=== PATIENT | male | born 1980 | race Caucasian/White ===

== ENCOUNTER 2022-07-24 07:46 | Outpatient (CLI) | payer OTHER, SELFPAY ==
[2022-07-24 15:26] LABS: Chloride* 107 mmol/L (96-114)
[2022-07-24 15:27] LABS: Albumin* 4.5 g/dL (3.3-5.0); Potassium* 4.4 mmol/L (3.6-5.1); Sodium* 141 mmol/L (135-149)
[2022-07-24 15:29] LABS: Cholesterol* 178 mg/dL (90-199)
[2022-07-24 15:30] LABS: Alanine Aminotransferase* 26 U/L (4-50); Alkaline Phosphatase* 95 U/L (40-150); Aspartate Amino Transferase* 27 U/L (12-35); Bilirubin Total* 0.7 mg/dL (0.1-1.5); Blood Urea Nitrogen* 15 mg/dL (5-24); Calcium* 9.5 mg/dL (8.4-10.6); Carbon Dioxide* 27 mmol/L (20-32); Creatinine* 0.8 mg/dL (0.5-1.5); Estimated Glomerular Filt Rate 113 ml/min; Glucose* 94 mg/dL (60-115); Total Protein* 7.3 g/dL (6.0-8.3); Triglycerides* 68 mg/dL (40-149)
[2022-07-24 15:31] LABS: HDL Cholesterol* 68 mg/dL (>=40); LDL Cholesterol Calculated 96 mg/dL (<100)
== END 2022-07-24 07:47 | disposition home or self-care (01) ==
PROVIDERS: PCP Family Medicine; Visit Provider Family Medicine
DX: Z00.00 Encounter for general adult medical examination without abnormal findings (principal); E78.5 Hyperlipidemia, unspecified; E66.9 Obesity, unspecified; R03.0 Elevated blood-pressure reading, without diagnosis of hypertension
CPT/HCPCS: 80053; 80061; 82043; 82570

== ENCOUNTER 2022-08-12 13:47 | Outpatient (CLI) | payer OTHER, SELFPAY ==
[2022-08-12 15:12] VITALS: BP 130/74; PULSE 107; RESP 16
--- NOTE | 2022-08-12 16:20 | W.PM.STED ---
Stress Test Note Date Date of test: 08/12/22 Providers Primary care provider: Not a Local Provider Stress test physician: Jean Kolb Stress Test Note Stress test ordered: Stress Echo Indication for test: Chest pain Results discussion: Patient is a very nice gentleman who presents for the above test after discussion the risks benefits and side effects in review of the cardiac stress test medical history he would like to proceed pretest EKG shows normal sinus rhythm, no acute ST wave changes, ventricular rate 84 and blood pressure 124/82. Patient exercised for a total of 10 minutes, achieved a metabolic equivalent of 11.5 Mets, maximum rate was 190, which is 126% of the maximum, test is terminated because of attainment of the protocol, he had no chest pain no shortness of breath, there is no EKG changes suggestive of ischemia, no dysrhythmias any recovered normally. Impression: Negative electrographic portion of stress echo Follow up suggested: Discharge home, Cardiology will review echo, clinical correlation with this will be needed, patient left this testing facility in excellent condition.
== END 2022-08-12 15:13 | disposition home or self-care (01) ==
LOC: STRESS 13:48
PROVIDERS: Visit Provider Family Medicine
DX: R07.9 Chest pain, unspecified (principal)
CPT/HCPCS: 93016; 93325; 93351

== ENCOUNTER 2024-03-10 09:18 | Outpatient (CLI) | payer OTHER, SELFPAY | END 2024-03-10 09:19 | disposition home or self-care (01) | PROVIDERS: PCP Physician Assistant Medical; Visit Provider Physician Assistant Medical | DX: E78.2 Mixed hyperlipidemia (principal); Z13.228 Encounter for screening for other metabolic disorders; Z13.29 Encounter for screening for other suspected endocrine disorder; Z11.59 Encounter for screening for other viral diseases | CPT/HCPCS: 80053; 80061; 84443; 86703; 86803 ==